=== PATIENT | male | born 1985 | race African-American/Black ===

== ENCOUNTER 2024-01-10 13:25 | Emergency (ER) | payer MEDICAID, SELFPAY ==
[2024-01-10 13:35] VITALS: BP 111/73; PULSE 84; RESP 18; TEMP 36.6; O2SAT 97; BMI 24.9
[2024-01-10 13:58] LABS: Basophils % 0.4 %; Eosinophils # 0.2 10^3/uL (0.0-0.8); Eosinophils % 3.7 %; Hematocrit 43.4 % (37-53); Lymphocytes # 2.7 10^3/uL (0.8-4.8); Mean Corpuscular HGB Conc 34.3 g/dL (30-55); Mean Corpuscular Hemoglobin 28.9 pg (27-33); Mean Corpuscular Volume 84.1 fl (82-101); Mean Platelet Volume 9.6 fL (7.4-10.4); Monocytes # 0.4 10^3/uL (0.2-0.9); Monocytes % 6.9 %; Neutrophils # 2.19 10^3/uL (1.8-7.7); Nucleated Red Blood Cells % 0 %; Platelet Count 215 10^3/cmm (157-399); Red Blood Count 5.16 10^6/uL (3.85-5.65); Red Cell Distribution Width 12.9 % (12.1-15.1); White Blood Count 5.47 10^3/uL (3.29-11.43)
[2024-01-10 14:16] LABS: Alanine Aminotransferase 17 U/L (0-41); Albumin Level 4.3 g/dL (3.5-5.2); Alkaline Phosphatase 84 U/L (40-130); Anion Gap 12.2 (5-19); Aspartate Amino Transferase 22 U/L (0-40); Blood Urea Nitrogen 21 mg/dL (6-20); Calcium 9.2 mg/dL (8.5-10.5); Carbon Dioxide 23 mmol/L (22-29); Chloride 112 mmol/L (98-107); Creatinine Clr Calc Pharmacy 112.9504; Globulin 2.2 g/dL (1.3-4.6); Glomerular Filtration Rate 91.1 mL/min (90-130); Glucose 101 mg/dL (65-115); Osmolality Calculated 299 mOsm/kg (285-295); Potassium 4.2 mmol/L (3.5-5.1); Sodium 143 mmol/L (136-145); Total Bilirubin 0.3 mg/dL (0.15-1.2); Total Protein 6.5 g/dL (6.6-8.7)
--- NOTE | 2024-01-10 14:27 | ED_ITS ---
HPI - Abdominal Pain 2 General: Chief Complaint: Abdominal Pain Stated Complaint: possible Kidney Stone Time Seen by Provider: 01/10/24 14:09 History of Present Illness: 38-year-old man who presents the emergen cy room with left flank pain. He says he was diagnosed with a kidney stone about 2 weeks ago. He is at a rehab here and has continued to have pain. No fevers. Has had some nausea. No vomiting. Review of Systems 2 Narrative: Constitutional symptoms: Negative except as documented in HPI. Skin symptoms: Negative except as documented in HPI. Eye symptoms: Negative except as documented in HPI. ENMT symptoms: Negative except as documented in HPI. Respiratory symptoms: Negative except as documented in HPI. Cardiovascular symptoms: Negative except as documented in HPI. Gastrointestinal symptoms: Negative except as documented in HPI. Genitourinary symptoms: Negative except as documented in HPI. Musculoskeletal symptoms: Negative except as documented in HPI. Neurologic symptoms: Negative except as documented in HPI. Psychiatric symptoms: Negative except as documented in HPI. Endocrine symptoms: Negative except as documented in HPI. Physical Exam 2 Narrative: EXAM NARRATIVE: General: Alert, no acute distress. Skin: Warm, dry. Head: Normocephalic, atraumatic. Neck: Supple, trachea midline. Eye: Extraocular movements are intact. Ears, nose, mouth and throat: mucosa moist. Cardiovascular: Regular, Normal peripheral perfusion. Respiratory: Lungs are clear to auscultation, respirations are non-labored, breath sounds are equal, Symmetrical chest wall expansion. Gastrointestinal: Soft, Nontender, Non distended, Normal bowel sounds. Musculoskeletal: Normal ROM, no deformity. Neurological: Alert and oriented, No focal neurological deficit observed. Psychiatric: Cooperative, appropriate mood & affect. Course 2 Vital Signs: Vital signs: Vital Signs Temperature 97.9 F 01/10/24 13:35 Pulse Rate 61 01/10/24 15:50 Respiratory Rate 18 01/10/24 13:35 Blood Pressure 134/82 01/10/24 15:50 Pulse Oximetry 99 01/10/24 15:50 Oxygen Delivery Me thod Room Air 01/10/24 15:50 MDM - Abdominal Pain Medical Decision Making Medical decision making: Differential diagnosis including but not limited to and based on the above HPI, review of systems and physical exam: Ureterolithiasis. Urinary tract infection. Appendicitis. Cholecystis. Musculoskeletal / back pain. Pyelonephritis Orders placed to evaluate differential diagnosis based on the above differential, HPI and physical exam Lab Review: Laboratory results were reviewed and interpreted by myself the emergency room physician. Lab work is unremarkable. No leukocytosis. No blood in the urine. CT of the abdomen pelvis without contrast: No acute process. Specifically no kidney stones and no hydronephrosis. I reviewed the patient's medical record. Reexamination: Patient remained stable. No increased work of breathing. No altered mental status. No focal motor deficits. Assessment and plan: Flank pain -Toradol fluids and Zofran in the emergency room. - Discharged home - Discussed findings and plan with patient. Answered any questions. - All laboratory values were reviewed and interpreted personally by myself, the ER physician - All imaging was reviewed and interpreted personally by myself, the ER physician. - Evaluation and treatment of this problem were appropriate in the emergency setting : Lab Data 01/10/24 13:50 01/10/24 13:50 Labs/Radiology: Radiology Impressions Abdomen/Pelvis CT 01/10/24 15:03 IMPRESSION: 1. No evidence of acute abnormality in the abdomen or pelvis within limitations of a noncontrast exam. Laboratory Results WBC 5.47 10^3/uL (3.29-11.43) 01/10/24 13:50 RBC 5.16 10^6/uL (3.85-5.65) 01/10/24 13:50 Hgb 14.90 g/dL (11.27-16.99) 01/10/24 13:50 Hct 43.4 % (37-53) 01/10/24 13:50 MCV 84.1 fl (82-101) 01/10/24 13:50 MCH 28.9 pg (27-33) 01/10/24 13:50 MCHC 34.3 g/dL (30-55) 01/10/24 13:50 RDW 12.9 % (12.1-15.1) 01/10/24 13:50 Plt Count 215 10^3/cmm (157-399) 01/10/24 13:50 MPV 9.6 fL (7.4-10.4) 01/10/24 13:50 Neut % (Auto) 40.0 % 01/10/24 13:50 Lymph % (Auto) 49.0 % 01/10/24 13:50 [place] % (Auto) 6.9 % 01/10/24 13:50 Eos % (Auto) 3.7 % 01/10/24 13:50 Baso % (Auto) 0.4 % 01/10/24 13:50 Neut # (Auto) 2.19 10^3/uL (1.8-7.7) 01/10/24 13:50 Lymph # (Auto) 2.7 10^3/uL (0.8-4.8) 01/10/24 13:50 [place] # (Auto) 0.4 10^3/uL (0.2-0.9) 01/10/24 13:50 Eos # (Auto) 0.2 10^3/uL (0.0-0.8) 01/10/24 13:50 Baso # (Auto) 0.0 10^3/uL (0.0-0.1) 01/10/24 13:50 Nucleated RBC % (auto) 0 % 01/10/24 13:50 Nucleated RBCs # 0.0 /100WBC 01/10/24 13:50 Sodium 143 mmol/L (136-145) 01/10/24 13:50 Potassium 4.2 mmol/L (3.5-5.1) 01/10/24 13:50 Chloride 112 mmol/L (98-107) H 01/10/24 13:50 Carbon Dioxide 23 mmol/L (22-29) 01/10/24 13:50 Anion Gap 12.2 (5-19) 01/10/24 13:50 BUN 21 mg/dL (6-20) H 01/10/24 13:50 Creatinine 1.1 mg/dL (0.7-1.2) 01/10/24 13:50 GFR Calculation 91.1 mL/min (90-130) 01/10/24 13:50 Glucose 101 mg/dL (65-115) 01/10/24 13:50 Calculated Osmolality 299 mOsm/kg (285-295) H 01/10/24 13:50 Calcium 9.2 mg/dL (8.5-10.5) 01/10/24 13:50 Total Bilirubin 0.3 mg/dL (0.15-1.2) 01/10/24 13:50 AST 22 U/L (0-40) 01/10/24 13:50 ALT 17 U/L (0-41) 01/10/24 13:50 Alkaline Phosphatase 84 U/L (40-130) 01/10/24 13:50 Total Protein 6.5 g/dL (6.6-8.7) L 01/10/24 13:50 Albumin 4.3 g/dL (3.5-5.2) 01/10/24 13:50 Globulin 2.2 g/dL (1.3-4.6) 01/10/24 13:50 Urine Color Yellow (Yellow) 01/10/24 15:39 Urine Appearance Clear (CLEAR) 01/10/24 15:39 Urine pH 6.5 (5-7) 01/10/24 15:39 Ur Specific [place] 1.015 (1.005-1.030) 01/10/24 15:39 Urine Protein Neg (Negative) 01/10/24 15:39 Urine Glucose (UA) Norm (Normal) 01/10/24 15:39 Urine Ketones 1+ (Negative) H 01/10/24 15:39 Urine Blood Neg (Negative) 01/10/24 15:39 Urine Nitrate Negative (Negative) 01/10/24 15:39 Urine Bilirubin Neg (Negative) 01/10/24 15:39 Urine Urobilinogen 4 mg/dL (Negative) H 01/10/24 15:39 Ur Leukocyte Esterase Negative (Negative) 01/10/24 15:39 All radiology interpretation(s) finalized by discharge Discharge Plan Discharge Patient Disposition: Home Clinical Impression: Left flank pain Condition: Stable Prescriptions: New diclofenac sodium 50 mg tablet,delayed release (DR/EC) 50 mg PO Q12H Qty: 20 0RF Discharge Orders: Discharge ED (Routine); Ordered 01/10/24 Ordered By: Micki Russ Discharge Diet: Usual diet Discharge Activity: Increase activity as tolerated Patient Instructions: Flank Pain (ED) Activity Restrictions/Additional Instructions: Thank you for choosing [facility] for your healthcare needs today. Please realize this is an emergency room and that we are providing you with a medical screening exam and this may not be complete and all inclusive of all the testing and or work up that you may need to determine your ailment or severity of your illness. You have been screened and evaluated and felt safe for discharge. Health conditions do change or evolve sometimes and as such it is important that you follow up with your Primary Doctor to be re checked, 3-5 days is a general good time frame for follow up. You are always welcome to return to the ED for re assessment if your symptoms are worsening or you have new concerns Coding Level of Care Code ED Bariatric Program Coordinator for Janki Lewis
[2024-01-10] MEDS: ketorolac 30 mg/mL INJ IVP (14:55)
[2024-01-10] MEDS: ondansetron 2 mg/ML SDV 2 mL 4 MG IVP (14:56)
[2024-01-10] MEDS: sodium chloride 0.9% 1,000 ML 999 ML IV (14:56)
--- NOTE | 2024-01-10 15:03 | CTR_ITS ---
PROCEDURE INFORMATION: Exam: CT Abdomen And Pelvis Without Contrast Exam date and time: 01/10/2024 3:55 PM Age: 38 years old Clinical indication: Nausea; Abdominal pain; Other: Flank pain TECHNIQUE: Imaging protocol: Computed tomography of the abdomen and pelvis without contrast. Radiation optimization: All CT scans at this facility use at least one of these dose optimization techniques: automated exposure control; mA and/or kV adjustment per patient size (includes targeted exams where dose is matched to clinical indication); or iterative reconstruction. COMPARISON: No relevant prior studies available. RADIATION DOSE METRICS: Total DLP (mGy-cm): 541 FINDINGS: Lungs: Subsegmental bibasilar atelectasis. The visualized lung bases are otherwise clear. Diaphragm: No evidence of diaphragmatic defect. Liver: No evidence of focal hepatic lesion within limitation of a noncontrast exam. Gallbladder and biliary ducts: Gallbladder is unremarkable. No evidence of intra-hepatic or extra-hepatic biliary dilatation. Pancreas: Grossly unremarkable. Spleen: Grossly unremarkable. Adrenal glands: Grossly unremarkable. Kidneys and ureters: No gross renal parenchymal abnormality. No evidence of hydronephrosis or ureteral stone. Stomach and bowel: No evidence of bowel obstruction or perienteric inflammatory changes. Moderate stool burden. Appendix: Normal appendix. Intraperitoneal space: No evidence of free air or fluid collection. Vasculature: No evidence of aneurysmal dilitation of abdominal aorta. Lymph nodes: No evidence of adenopathy. Urinary bladder: Grossly unremarkable. Reproductive: Grossly unremarkable. Bones/joints: No evidence of acute fracture or aggresive osseous lesion. L4-L5 and L5-S1 disc bulges. Mild-moderate bilateral foraminal stenosis at L5-S1. Soft tissues: No evidence of fluid collection or hematoma in the superficial soft tissues. CT/CT abdomen pelvis con [id number] IMPRESSION: 1. No evidence of acute abnormality in the abdomen or pelvis within limitations of a noncontrast exam.
[2024-01-10 15:47] LABS: Add Urine Microscopic? NO; Charge for UA Resulting for Rev
[2024-01-10 15:50] VITALS: BP 134/82; PULSE 61; O2SAT 99
[2024-01-10 16:00] LABS: Blood Urine Neg (Negative); Glucose Urine UA Norm (Normal); Ketones Urine 1+ (Negative); Protein Urine Neg (Negative); Specific Gravity, Urine 1.015 (1.005-1.030); Urine Appearance Clear (CLEAR); Urine Color Yellow (Yellow); pH Urine 6.5 (5-7)
[2024-01-10 16:01] LABS: Bilirubin Urine Neg (Negative); Leukocyte Esterase Urine Negative (Negative); Nitrate Urine Negative (Negative); Urobilinogen Urine 4 mg/dL (Negative)
== END 2024-01-10 17:03 | disposition home or self-care (01) ==
PROVIDERS: Emergency Medicine; Emergency Provider Emergency Medicine
DX: R10.9 Unspecified abdominal pain (principal)
CPT/HCPCS: 36415; 74176; 80053; 81003; 85025; 96374; 96375; 99285; J1885; J2405; J7030

== ENCOUNTER 2024-01-17 12:02 | Emergency (ER) | payer MEDICAID, SELFPAY ==
[2024-01-17 12:03] VITALS: BP 128/78; PULSE 86; RESP 16; TEMP 36.4; O2SAT 98; BMI 25.3
--- NOTE | 2024-01-17 12:25 | ED_ITS ---
HPI - Nausea/Vomiting/Diarrhea 2 General: Chief complaint: Nausea/Vomiting/Diarrhea Stated complaint: Vomitting Time Seen by Provider: 01/17/24 12:19 History of Present Illness: Patient says he has been vomiting since this morning. No focal abdominal pain. No diarrhea thus far. No fevers. No altered mental status. No chest pain. Review of Systems 2 Narrative: Constitutional symptoms: Negative except as documented in HPI. Skin symptoms: Negative except as documented in HPI. Eye symptoms: Negative except as documented in HPI. ENMT symptoms: Negative except as documented in HPI. Respiratory symptoms: Negative except as documented in HPI. Cardiovascular symptoms: Negative except as documented in HPI. Gastrointestinal symptoms: Negative except as documented in HPI. Genitourinary symptoms: Negative except as documented in HPI. Musculoskeletal symptoms: Negative except as documented in HPI. Neurologic symptoms: Negative except as documented in HPI. Psychiatric symptoms: Negative except as documented in HPI. Endocrine symptoms: Negative except as documented in HPI. PFSH ED 2 PFSH: Social History Smoking and tobacco/nicotine status: unknown if used tobacco/nicotine Physical Exam 2 Narrative: EXAM NARRATIVE: General: Alert, no acute distress. Skin: Warm, dry. Head: Normocephalic, atraumatic. Neck: Supple, trachea midline. Eye: Extraocular movements are intact. Ears, nose, mouth and throat: mucosa moist. Cardiovascular: Regular, Normal peripheral perfusion. Respiratory: Lungs are clear to auscultation, respirations are non-labored, breath sounds are equal, Symmetrical chest wall expansion. Gastrointestinal: Soft, Nontender, Non distended Musculoskeletal: Normal ROM, no deformity. Neurological: Alert and oriented, No focal neurological deficit observed. Psychiatric: Cooperative, appropriate mood & affect. Course 2 Vital Signs: Vital signs: Vital Signs Temperature 97.5 F L 01/17/24 12:03 Pulse Rate 86 01/17/24 12:03 Respiratory Rate 16 01/17/24 12:03 Blood Pressure 128/78 01/17/24 12:03 Pulse Oximetry 98 01/17/24 12:03 Oxygen Delivery Me thod Room Air 01/17/24 12:03 MDM - Nausea/Vomiting/Diarrhea Medical Decision Making Medical decision making: Differential diagnosis for this patient with nausea and vomiting including but not limited to and based on the above HPI, review of systems and physical exam: Urinary tract infection. Appendicitis. Cholecystis. colitis. small bowel obstruction. crohn's flare. pancreatitis. gastritis. peptic ulcer. cyclic vomiting. Viral illness. Influenza. COVID. - Workup - labwork and imaging ordered to evaluate, rule in and rule out above pathologies. Lab Review: Laboratory results were reviewed and interpreted by myself the emergency room physician. Lab work was unremarkable. I reviewed the patient's medical record. Reexamination: Patient appears improved and is had no vomiting after Zofran. Assessment and plan: Gastroenteritis -Zofran in the emergency room - Discharged home - Discussed findings and plan with patient. Answered any questions. - All laboratory values were reviewed and interpreted personally by myself, the ER physician - Evaluation and treatment of this problem were appropriate in the emergency setting Lab Data 01/17/24 12:35 01/17/24 12:35 Laboratory Results WBC 6.11 10^3/uL (3.29-11.43) 01/17/24 12:35 RBC 5.67 10^6/uL (3.85-5.65) H 01/17/24 12:35 Hgb 16.40 g/dL (11.27-16.99) 01/17/24 12:35 Hct 47.4 % (37-53) 01/17/24 12:35 MCV 83.6 fl (82-101) 01/17/24 12:35 MCH 28.9 pg (27-33) 01/17/24 12:35 MCHC 34.6 g/dL (30-55) 01/17/24 12:35 RDW 12.7 % (12.1-15.1) 01/17/24 12:35 Plt Count 225 10^3/cmm (157-399) 01/17/24 12:35 MPV 9.5 fL (7.4-10.4) 01/17/24 12:35 Neut % (Auto) 62.5 % 01/17/24 12:35 Lymph % (Auto) 28.5 % 01/17/24 12:35 [place] % (Auto) 6.7 % 01/17/24 12:35 Eos % (Auto) 2.0 % 01/17/24 12:35 Baso % (Auto) 0.3 % 01/17/24 12:35 Neut # (Auto) 3.82 10^3/uL (1.8-7.7) 01/17/24 12:35 Lymph # (Auto) 1.7 10^3/uL (0.8-4.8) 01/17/24 12:35 [place] # (Auto) 0.4 10^3/uL (0.2-0.9) 01/17/24 12:35 Eos # (Auto) 0.1 10^3/uL (0.0-0.8) 01/17/24 12:35 Baso # (Auto) 0.0 10^3/uL (0.0-0.1) 01/17/24 12:35 Nucleated RBC % (auto) 0 % 01/17/24 12:35 Nucleated RBCs # 0.0 /100WBC 01/17/24 12:35 Sodium 139 mmol/L (136-145) 01/17/24 12:35 Potassium 5.0 mmol/L (3.5-5.1) 01/17/24 12:35 Chloride 102 mmol/L (98-107) 01/17/24 12:35 Carbon Dioxide 27 mmol/L (22-29) 01/17/24 12:35 Anion Gap 15.0 (5-19) 01/17/24 12:35 BUN 15 mg/dL (6-20) 01/17/24 12:35 Creatinine 0.8 mg/dL (0.7-1.2) 01/17/24 12:35 GFR Calculation 131.6 mL/min (90-130) H 01/17/24 12:35 Glucose 105 mg/dL (65-115) 01/17/24 12:35 Calculated Osmolality 289 mOsm/kg (285-295) 01/17/24 12:35 Calcium 9.8 mg/dL (8.5-10.5) 01/17/24 12:35 Total Bilirubin 0.5 mg/dL (0.15-1.2) 01/17/24 12:35 AST 24 U/L (0-40) 01/17/24 12:35 ALT 20 U/L (0-41) 01/17/24 12:35 Alkaline Phosphatase 93 U/L (40-130) 01/17/24 12:35 Total Protein 7.3 g/dL (6.6-8.7) 01/17/24 12:35 Albumin 4.7 g/dL (3.5-5.2) 01/17/24 12:35 Globulin 2.6 g/dL (1.3-4.6) 01/17/24 12:35 Lipase 105 U/L (13-60) H 01/17/24 12:35 Urine Color Dark yellow (Yellow) A 01/17/24 13:40 Urine Appearance Clear (CLEAR) 01/17/24 13:40 Urine pH 7 (5-7) 01/17/24 13:40 Ur Specific [place] 1.015 (1.005-1.030) 01/17/24 13:40 Urine Protein Trace (Negative) 01/17/24 13:40 Urine Glucose (UA) Norm (Normal) 01/17/24 13:40 Urine Ketones Negative (Negative) 01/17/24 13:40 Urine Blood Neg (Negative) 01/17/24 13:40 Urine Nitrate Negative (Negative) 01/17/24 13:40 Urine Bilirubin 1+ (Negative) H 01/17/24 13:40 Urine Urobilinogen 1 mg/dL (Negative) H 01/17/24 13:40 Ur Leukocyte Esterase Trace (Negative) H 01/17/24 13:40 Urine RBC None /hpf (0-2) 01/17/24 13:40 Urine WBC 0-4 /hpf (0-5) H 01/17/24 13:40 Ur Squamous Epith Cells None /hpf (0-5) 01/17/24 13:40 Amorphous Sediment 1+ /hpf 01/17/24 13:40 Urine Bacteria 1+ /hpf (NONE) H 01/17/24 13:40 All radiology interpretation(s) finalized by discharge Discharge Plan Discharge Patient Disposition: Home Clinical Impression: Gastroenteritis Condition: Stable Prescriptions: New ondansetron 8 mg tablet,disintegrating 8 mg PO .q6 PRN (Reason: nausea and vomiting) Qty: 14 0RF No Action amoxicillin-pot clavulanate 875-125 mg tablet 1 tab PO BID 7 Days Qty: 14 0RF multivitamin Tablet 1 tab PO QAM metformin 500 mg Tablet 500 mg PO BID hydroxyzine HCl 50 mg Tablet 50 mg PO TID PRN (Reason: Anxiety) ofloxacin 0.3 % drops 10 drp otic (ear) DAILY mirtazapine 30 mg Tablet 30 mg PO BEDTIME nicotine 21 mg/24 hr Patch 24 Hour 1 patch TRANSDERMAL DAILY naproxen 500 mg Tablet 500 mg PO BID bupropion HCl 300 mg Tablet Extended Release 24 Hr 300 mg PO QAM melatonin 5 mg Tablet 5 mg PO BEDTIME buprenorphine-naloxone 8-2 mg film 0.5 film sublingual BID diclofenac sodium 50 mg tablet,delayed release (DR/EC) 50 mg PO Q12H Qty: 20 0RF Discharge Orders: Discharge ED (Routine); Ordered 01/17/24 Ordered By: Micki Russ Discharge Diet: Usual diet Discharge Activity: Increase activity as tolerated Patient Instructions: Acute Nausea and Vomiting (ED) Activity Restrictions/Additional Instructions: Thank you for choosing [facility] for your healthcare needs today. Please realize this is an emergency room and that we are providing you with a medical screening exam and this may not be complete and all inclusive of all the testing and or work up that you may need to determine your ailment or severity of your illness. You have been screened and evaluated and felt safe for discharge. Health conditions do change or evolve sometimes and as such it is important that you follow up with your Primary Doctor to be re checked, 3-5 days is a general good time frame for follow up. You are always welcome to return to the ED for re assessment if your symptoms are worsening or you have new concerns Coding Level of Care Code ED Retail Advisor for Janki Lewis
[2024-01-17] MEDS: ondansetron 2 mg/ML SDV 2 mL 8 MG IVP (12:41)
[2024-01-17 13:01] LABS: Basophils % 0.3 %; Eosinophils # 0.1 10^3/uL (0.0-0.8); Hematocrit 47.4 % (37-53); Lymphocytes # 1.7 10^3/uL (0.8-4.8); Lymphocytes % 28.5 %; Mean Corpuscular HGB Conc 34.6 g/dL (30-55); Mean Corpuscular Hemoglobin 28.9 pg (27-33); Mean Corpuscular Volume 83.6 fl (82-101); Mean Platelet Volume 9.5 fL (7.4-10.4); Monocytes # 0.4 10^3/uL (0.2-0.9); Monocytes % 6.7 %; Neutrophils # 3.82 10^3/uL (1.8-7.7); Neutrophils % 62.5 %; Nucleated Red Blood Cells % 0 %; Platelet Count 225 10^3/cmm (157-399); Red Blood Count 5.67 10^6/uL (3.85-5.65); Red Cell Distribution Width 12.7 % (12.1-15.1); White Blood Count 6.11 10^3/uL (3.29-11.43)
--- NOTE | 2024-01-17 13:18 | PC.PHAR ---
PT IS FROM [facility]
[2024-01-17 13:19] LABS: Alanine Aminotransferase 20 U/L (0-41); Albumin Level 4.7 g/dL (3.5-5.2); Alkaline Phosphatase 93 U/L (40-130); Aspartate Amino Transferase 24 U/L (0-40); Blood Urea Nitrogen 15 mg/dL (6-20); Calcium 9.8 mg/dL (8.5-10.5); Carbon Dioxide 27 mmol/L (22-29); Chloride 102 mmol/L (98-107); Creatinine Clr Calc Pharmacy 156.5235; Globulin 2.6 g/dL (1.3-4.6); Glomerular Filtration Rate 131.6 mL/min (90-130); Glucose 105 mg/dL (65-115); Lipase 105 U/L (13-60); Osmolality Calculated 289 mOsm/kg (285-295); Sodium 139 mmol/L (136-145); Total Bilirubin 0.5 mg/dL (0.15-1.2); Total Protein 7.3 g/dL (6.6-8.7)
--- NOTE | 2024-01-17 13:31 | PC.PHAR ---
PT HAS DICLOFENAC SODIUM 50MG TWICE DAILY AND ALSO HAS CURRENT ORDER FOR NAPROSYN 500MG TWICE DAILY.
[2024-01-17 13:56] LABS: Glucose Urine UA Norm (Normal); Ketones Urine Negative (Negative); Protein Urine Trace (Negative); Specific Gravity, Urine 1.015 (1.005-1.030); Urine Appearance Clear (CLEAR); Urine Color Dark Yellow (Yellow); pH Urine 7 (5-7)
[2024-01-17 13:57] LABS: Add Urine Culture? No; Add Urine Microscopic? YES; Amorphous Sediment Urine 1+ /hpf; Bacteria Urine 1+ /hpf; Bilirubin Urine 1+ (Negative); Blood Urine Neg (Negative); Leukocyte Esterase Urine Trace (Negative); Nitrate Urine Negative (Negative); Urobilinogen Urine 1 mg/dL (Negative); WBC Urine 0-4 /hpf (0-5)
== END 2024-01-17 14:10 | disposition home or self-care (01) ==
PROVIDERS: Physician Assistant; Emergency Provider Emergency Medicine
DX: K52.9 Noninfective gastroenteritis and colitis, unspecified (principal); Z79.84 Long term (current) use of oral hypoglycemic drugs
CPT/HCPCS: 36415; 80053; 81001; 83690; 85025; 96374; 99284; J2405